=== PATIENT | female | born 1990 ===

== ENCOUNTER 2018-09-21 18:00 | Emergency (ER) | payer OTHER ==
[~2018-09-21] VITALS: Ht 167.6 cm; Wt 61.0 kg
[2018-09-21 18:03] VITALS: BP 145/82
--- NOTE | 2018-09-21 23:39 | NUR ---
NO RESPONSE FROM LOBBY AFTER 3 ATTEMPTS TO ROOM. CALL PLACED TO NUMBER ON FILE, MESSAGE LEFT EXPRESSING CONCERN FOR PATIENTS WELL BEING, AND TO ENCOURAGE HER TO RETURN FOR EVAL. ED PHONE # AND CONTACT INFO PROVIDED IN MESSAGE. DR TORRES INFORMED.
== END 2018-09-21 23:43 | disposition left against medical advice (07) ==
LOC: ER 18:01
DX: R00.0 Tachycardia, unspecified (principal); R07.89 Other chest pain; R06.02 Shortness of breath; R11.0 Nausea; R42 Dizziness and giddiness; R47.81 Slurred speech; R20.0 Anesthesia of skin; G43.909 Migraine, unspecified, not intractable, without status migrainosus; Z53.21 Procedure and treatment not carried out due to patient leaving prior to being seen by health care provider